=== PATIENT | female | born 1965 | race Caucasian/White ===

== ENCOUNTER 2020-05-23 14:17 | Emergency (ER) | payer BC ==
[2020-05-23] MEDS ORDERED: BUPIVACAINE 0.5% PF 10 ML VIAL ONE (16:01)
[2020-05-23] MEDS ORDERED: LIDOCAINE 1% MPF 5 ML VIAL ONE (16:01)
--- NOTE | 2020-05-23 18:19 | EDPHYS ---
Physician Documentation [facility] Name: Marry Shaw Age: 54 yrs Sex: Female : 1965 Arrival Date: 05/23/2020 Time: 14:18 Bed 25 Private MD: QUYNH Physician Germán Chery HPI: 05/23 18:16 This 54 yrs old Female presents to ER via Ambulatory with complaints of kb Finger Injury. 18:16 The patient has a laceration related to: doing yard work, [employer], occurred at home, outdoors, and there are no complicating factors. The injury was accidental. The laceration(s) is(are) located on the palmar aspect of distal phalanx of left index finger and palmar aspect of distal phalanx of left middle finger. Onset: The symptoms/episode began/occurred just prior to arrival. Associated signs and symptoms: Pertinent positives: heavy bleeding. The patient has not experienced similar symptoms in the past. The patient has not recently seen a physician. Pt was doing yard work, reached down to garbage pick up man a branch and it was the hedge trimmers. . 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 - Social history:: Smoking status: Patient denies any tobacco usage or history of. ROS: 18:13 Constitutional: Negative for fever, chills, and weight loss, MS/Extremity: Negative for kb injury and deformity, Neuro: Negative for headache, weakness, numbness, tingling, and seizure. 18:13 Skin: Positive for laceration(s), of the palmar aspect of distal phalanx of left index finger and palmar aspect of distal phalanx of left middle finger. Exam: 18:12 Constitutional: This is a well developed, well nourished patient who is awake, alert, kb and in no acute distress. Head/Face: Normocephalic, atraumatic. Respiratory: Respirations even and unlabored. No increased work of breathing, no retractions or nasal flaring. MS/ Extremity: Pulses equal, no cyanosis. Neurovascular intact. Full, normal range of motion. Neuro: Awake and alert, GCS 15, oriented to person, place, time, and situation. Moves all extremities. Normal gait. 18:12 Skin: injury, laceration(s), the wound is approximately 1 cm(s), of the palmar aspect of distal phalanx of left middle finger, the second wound is approximately 5 cm(s), of the palmar aspect of distal phalanx of left index finger, that can be described as clean, no foreign body, jagged, with mild bleeding. Vital Signs: 14:18 BP 170 / 90; Pulse 98; Resp 16 S; Temp 97.9(TE); Pulse Ox 98% on R/A; Weight 63.5 kg ca1 (R); Height 5 ft. 5 in. (165.10 cm) (R); Pain 7/10; 14:18 Body Mass Index 23.30 (63.50 kg, 165.10 cm) ca1 Laceration: 18:08 Wound Repair of 1cm ( 0.4in ) subcutaneous laceration to palmar aspect of middle kb phalanx of left middle finger. Irregularly shaped.. Distal neuro/vascular/tendon intact. Anesthesia: Regional Block with 3 mls of Lido/Marcaine. Wound prep: Extensive cleansing with betadine by me, Wound irrigation with saline by me. Skin closed with 2 5-0 Prolene using simple sutures and sterile technique. Patient tolerated well. 18:08 Wound Repair of 5cm ( 2.0in ) subcutaneous laceration to palmar aspect of distal kb phalanx of left index finger and palmar aspect of middle phalanx of left index finger. Irregularly shaped.. Skin/tissue flap noted.. Distal neuro/vascular/tendon intact. Anesthesia: Regional Block with 4 mls of Lido/Marcaine. Wound prep: Extensive cleansing with betadine by me, Wound irrigation with saline by me. Skin closed with 13 5-0 Prolene using simple sutures and sterile technique. Patient tolerated well. MDM: 15:16 Patient medically screened. kb 18:08 Data reviewed: vital signs, nurses notes. Data interpreted: Pulse oximetry: on room air kb is 98 %. Interpretation: normal. Counseling: I had a detailed discussion with the patient and/or guardian regarding: the historical points, exam findings, and any diagnostic results supporting the discharge/admit diagnosis, the need for outpatient follow up, a family practitioner, to return to the emergency department if symptoms worsen or persist or if there are any questions or concerns that arise at home. 18:13 ED course: Pt cut fingers while doing yard work, dirt covered hands. Wound soaked and kb cleaned, but will prescribe antibiotics for prophylaxis. . 05/23 16:18 Order name: Misc. Order: soak hand in 50/50 mixture of betadine and NS for 15 minutes kb please; Complete Time: 16:30 05/23 16:19 Order name: Prolene, Sutures; Complete Time: 16:47 kb 05/23 16:19 Order name: Dressing - Wound; Complete Time: 16:47 kb 05/23 16:19 Order name: Gloves, Sterile; Complete Time: 16:48 kb 05/23 16:19 Order name: Setup Suture Tray; Complete Time: 16:48 kb 05/23 18:13 Order name: Finger Splint; Complete Time: 18:34 kb Administered Medications: 16:00 Drug: Bupivacaine (0.5 %) 1 vials {Note: given by KAT Ramirez.} Volume: 10 ml; Route: iw Infiltration; 16:00 Drug: Lidocaine (1 %) 1 vials {Note: given by KAT Ramirez.} Volume: 5 ml; Route: iw Infiltration; 18:44 Drug: KeFLEX (cephalexin) 500 mg Route: PO; aa5 18:44 Follow up: Response: Medication administered at discharge. aa5 Disposition: 05/24 01:16 Co-signature as Attending Physician, Germán Chery MD I agree with the assessment and ike plan of care. Disposition: 05/23/20 18:18 Discharged to Home. Impression: Laceration without foreign body of left index finger without damage to nail, Laceration without foreign body of left middle finger without damage to nail. - Condition is Stable. - Discharge Instructions: Laceration Care, Adult, [id number]. - Prescriptions for Keflex 500 mg Oral Capsule - take 1 capsule by ORAL route every 8 hours for 7 days; 21 capsule. - Medication Reconciliation Form, Thank You Letter, Antibiotic Education, Prescription Opioid Use form. - Follow up: Emergency Department; When: As needed; Reason: Worsening of condition. Follow up: Private Physician; When: 2 - 3 days; Reason: Recheck today's complaints, Continuance of care, Re-evaluation by your physician. Signatures: Ashley Ziegler, GENESIS MERCADO-Germán Ledezma MD MD cha Williams, Irene, RN RN iw Ilene Scott RN RN aa5 Maite Cosby RN RN ca1 Corrections: (The following items were deleted from the chart) 05/23 18:44 18:18 05/23/2020 18:18 Discharged to Home. Impression: Laceration without foreign body aa5 of left index finger without damage to nail; Laceration without foreign body of left middle finger without damage to nail. Condition is Stable. Forms are Medication Reconciliation Form, Thank You Letter, Antibiotic Education, Prescription Opioid Use. Follow up: Emergency Department; When: As needed; Reason: Worsening of condition. Follow up: Private Physician; When: 2 - 3 days; Reason: Recheck today's complaints, Continuance of care, Re-evaluation by your physician. kb
--- NOTE | 2020-05-23 18:19 | ER ---
Nurse's Notes [facility] Name: Marry Shaw Age: 54 yrs Sex: Female : 1965 Arrival Date: 05/23/2020 Time: 14:18 Bed 25 Private MD: Diagnosis: Laceration without foreign body of left index finger without damage to nail;Laceration without foreign body of left middle finger without damage to nail Presentation: 05/23 14:18 Chief complaint: Patient states: Lac on L index finger by a mophead trimmer and wrapper 20 mins [employer]. ca1 Bleeding control. Coronavirus screen: Client denies travel out of the [place] in the last 14 days. At this time, the client does not indicate any symptoms associated with coronavirus-19. Ebola Screen: Patient negative for fever greater than or equal to 101.5 degrees Fahrenheit, and additional compatible Ebola Virus Disease symptoms Patient denies exposure to infectious person. Patient denies travel to an Ebola-affected area in the 21 days before illness onset. No symptoms or risks identified at this time. Initial Sepsis Screen: Does the patient meet any 2 criteria? No. Patient's initial sepsis screen is negative. Does the patient have a suspected source of infection? No. Patient's initial sepsis screen is negative. Risk Assessment: Do you want to hurt yourself or someone else? Patient reports no desire to harm self or others. Onset of symptoms was May 23, 2020. 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 - Social history:: Smoking status: Patient denies any tobacco usage or history of. Screenin:17 Abuse screen: Denies threats or abuse. Denies injuries from another. Nutritional iw screening: No deficits noted. Tuberculosis screening: No symptoms or risk factors identified. Fall Risk None identified. Assessment: 16:30 General: Appears in no apparent distress. Behavior is calm, cooperative. Pain: iw Complains of pain in palmar aspect of distal phalanx of left ring finger and palmar aspect of distal phalanx of left middle finger. Neuro: Level of Consciousness is awake, alert, obeys commands, Oriented to person, place, time, situation. Cardiovascular: Patient's skin is warm and dry. Respiratory: Respiratory effort is even, unlabored, Respiratory pattern is regular, symmetrical. Musculoskeletal: Range of motion: intact in all extremities. Injury Description: Laceration sustained to palmar aspect of distal phalanx of left middle finger and palmar aspect of distal phalanx of left index finger is jagged, 0.5 to 2.5 cm long. 17:17 Reassessment: Patient appears in no apparent distress at this time. Patient and/or iw family updated on plan of care and expected duration. Pain level reassessed. Patient is alert, oriented x 3, equal unlabored respirations, skin warm/dry/pink. 18:40 Reassessment: Patient is alert, oriented x 3, equal unlabored respirations, skin aa5 warm/dry/pink. Vital Signs: 14:18 BP 170 / 90; Pulse 98; Resp 16 S; Temp 97.9(TE); Pulse Ox 98% on R/A; Weight 63.5 kg ca1 (R); Height 5 ft. 5 in. (165.10 cm) (R); Pain 7/10; 14:18 Body Mass Index 23.30 (63.50 kg, 165.10 cm) ca1 ED Course: 14:18 Patient arrived in ED. ca1 14:20 Triage completed. ca1 14:21 Arm band placed on right wrist. ca1 14:50 Patient has correct armband on for positive identification. iw 15:12 Ashley Ziegler FNP-C is [facility]. ca1 15:17 Germán Chery MD is Attending Physician. kb 15:41 Radha Sherman, CHUCK is Primary Nurse. iw 18:40 No provider procedures requiring assistance completed. Patient did not have IV access aa5 during this emergency room visit. Administered Medications: 16:00 Drug: Bupivacaine (0.5 %) 1 vials {Note: given by KAT Ramirez.} Volume: 10 ml; Route: iw Infiltration; 16:00 Drug: Lidocaine (1 %) 1 vials {Note: given by NP. Ashley} Volume: 5 ml; Route: iw Infiltration; 18:44 Drug: KeFLEX (cephalexin) 500 mg Route: PO; aa5 18:44 Follow up: Response: Medication administered at discharge. aa5 Outcome: 18:18 Discharge ordered by . mirian 18:40 Discharged to home ambulatory. aa5 18:40 Condition: stable 18:40 Discharge instructions given to patient, Instructed on discharge instructions, follow up and referral plans. medication usage, Demonstrated understanding of instructions, follow-up care, medications, Prescriptions given X 1. 18:44 Patient left the ED. aa5 Signatures: Ashley Ziegler, ANESTHESIA ASSOCIATE-C JESS-Radha Sung, RN RN iw Ilene Scott, RN RN aa5 Maite Cosby RN RN ca1
[2020-05-23] MEDS ORDERED: CEPHALEXIN 250 MG CAP ONE (18:51)
[2020-05-23 19:05] VITALS: BP 170/90; TEMP 97.9; O2SAT 98
== END 2020-05-23 18:44 | disposition home or self-care (01) ==
LOC: ER 14:17
PROC: 0JQK0ZZ Repair Left Hand Subcutaneous Tissue and Fascia, Open Approach (ICD-10-PCS; principal; 2020-05-23)
DX: S61.213A Laceration without foreign body of left middle finger without damage to nail, initial encounter (principal); W27.8XXA Contact with other nonpowered hand tool, initial encounter; Y93.H2 Activity, gardening and landscaping; Y92.007 Garden or yard of unspecified non-institutional (private) residence as the place of occurrence of the external cause; I10 Essential (primary) hypertension; Z88.5 Allergy status to narcotic agent
CPT/HCPCS: 99283